=== PATIENT | male | born 1970 | race African-American/Black ===

== ENCOUNTER 2024-02-24 12:04 | Emergency (ER) | payer OTHER ==
[~2024-02-24] VITALS: Ht 170.2 cm; Wt 72.6 kg
[2024-02-24 15:07] VITALS: BP 142/88; TEMP 97.6; O2SAT 98
== END 2024-02-24 15:08 | disposition home or self-care (01) ==
LOC: ER 12:15
DX: S00.01XA Abrasion of scalp, initial encounter (principal); W01.198A Fall on same level from slipping, tripping and stumbling with subsequent striking against other object, initial encounter; Y92.89 Other specified places as the place of occurrence of the external cause; Y99.8 Other external cause status; Y93.89 Activity, other specified
CPT/HCPCS: 70450-TC